=== PATIENT | female | born 1990 | race Caucasian/White ===

== ENCOUNTER 2019-08-13 15:21 | Inpatient (IN) | payer OTHER ==
[~2019-08-13] VITALS: Ht 160 cm; Wt 93.1 kg
--- NOTE | ~2019-08-13 | EKG ---
[place], [place] ELECTROCARDIOGRAM REPORT NAME: MITRA GARDINER UNIT #: [id number] ROOM: 426 DOCTOR: TRISHA DRAFT REPORT BIRTHDATE: [birth year] [facility] Test Date: 2019-08-13 Test Time: 18:35:18 Pat Name: MITRA GARDINER Department: Room: 42 1 Gender: F Coding Analyst: SS RESP : 1990 Requested By: AKHIL CAMPA Order Number: [id number] Reading MD: Stephan Reynoso Measurements Intervals [place] Rate: 85 P: 45 IL: 145 QRS: 40 QRSD: 90 T: 21 QT: 387 QTc: 461 Interpretive Statements Sinus rhythm Electronically Signed On 08-14-2019 7:45:36 PST by Stephan Reynoso CM:EKGRPT:ELECTROCARDIOGRAM REPORT [id number] AKHIL SMITHANY DRAFT REPORT AKHIL CAMPA
--- NOTE | ~2019-08-13 | EKG ---
[place], [place] ELECTROCARDIOGRAM REPORT NAME: MITRA GARDINER UNIT #: [id number] ROOM: 426 DOCTOR: TRISHA DRAFT REPORT BIRTHDATE: [birth year] [facility] Test Date: 2019-08-13 Test Time: 16:37:47 Pat Name: MITRA GARDINER Department: Room: 42 1 Gender: F Occupational Therapy Department Chair: SS RESP : 1990 Requested By: PHOENIX COOK Order Number: [id number] Reading MD: Stephan Reynoso Measurements Intervals [place] Rate: 83 P: 52 CT: 162 QRS: 51 QRSD: 84 T: 37 QT: 386 QTc: 454 Interpretive Statements Sinus rhythm Baseline wander in lead(s) V2 No previous ECG available for comparison Electronically Signed On 08-14-2019 7:42:42 PST by Stephan Reynoso CM:EKGRPT:ELECTROCARDIOGRAM REPORT [id number] PHOENIX COOK EPIPHANY DRAFT REPORT PHOENIX COOK
[2019-08-13 15:24] VITALS: BP 140/87
[2019-08-13 16:04] LABS: BILIRUBIN NEGATIVE (NEGATIVE); BLOOD NEGATIVE (NEGATIVE); CLARITY SL CLOUDY (CLEAR); COLOR YELLOW (YELLOW); GLUCOSE NEGATIVE (NEGATIVE); KETONE TRACE (NEGATIVE); LEUKO ESTERASE NEGATIVE (NEGATIVE); NITRITE NEGATIVE (NEGATIVE); PH 5.5 (5.0-9.0); SPECIFIC GRAVITY 1.025 (1.005-1.030); UROBILINOGEN 0.2 E.U./dl (0.2-1.0)
[2019-08-13 16:12] LABS: URINE AMPHETAMINES < 1000 (1000ng/ml); URINE BARBITURATES > 200 (200ng/ml); URINE BENZODIAZEPINES < 200 (200ng/ml); URINE CANNABINOIDS (THC) < 50 (50ng/ml); URINE COCAINE > 300 (300ng/ml); URINE METHADONE < 300 (300ng/ml); URINE OPIATES > 300 (300ng/ml)
[2019-08-13 16:16] LABS: URINE PHENCYCLIDINE < 25 (25ng/ml)
[2019-08-13] MEDS ORDERED: AMOXICILLIN500 M3 PO (16:41)
[2019-08-13 16:43] LABS: ALBUMIN 3.5 gm/dl (3.1-4.5); ALKALINE PHOSPHATASE 64 U/L (45-117); BUN 12 mg/dl (7-24); CHLORIDE 107 mmol/L (98-107); CREATININE 0.84 mg/dL (0.55-1.02); POTASSIUM 4.2 mmol/L (3.5-5.1); SGOT/AST 17 IU/L (3-35); SGPT/ALT 21 U/L (12-78); SODIUM 135 mmol/L (136-145)
[2019-08-13 16:51] LABS: THYROID STIM HORMONE (HS) 0.577 uIU/ml (0.358-4.75)
[2019-08-13 16:52] LABS: ETHYL ALCOHOL < 3.0 mg/dl (<3)
--- NOTE | 2019-08-13 16:52 | NUR ---
PATIENT MEETS [facility]. CINA=16, CIWA=27. PATIENT WANTS TO FOLLOW UP WITH RESIDENTIAL TREATENT THOROUGH [facility]. ADRIEN NGUYEN B.A. LEAD INSTRUCTOR/FLIGHT ATTENDANT
[2019-08-13 16:54] VITALS: BP 119/72
[2019-08-13 16:57] LABS: BASO % 0.3 % (0.0-1.0); EOS # 0.2 10*3/uL (0.0-0.4); EOS % 2.5 % (1.0-4.0); HEMATOCRIT 42.2 % (37.0-47.0); HEMOGLOBIN 13.6 g/dl (12.0-16.0); LYMPH # 2.3 10*3/uL (1.3-4.4); MEAN CELL VOLUME 79.2 fl (81.0-99.0); MEAN CORPUSCULAR HGB 25.5 pg (27.0-31.0); MEAN CORPUSCULAR HGB CONC 32.2 g/dl (33.0-37.0); MEAN PLATELET VOLUME 9.1 fl (9.6-12.3); MONO # 0.6 10*3/uL (0.1-1.0); MONO % 6.1 % (3.0-9.0); NEUT # 6.1 10*3/uL (2.3-7.9); NEUT % 65.7 % (47.0-73.0); PLATELET COUNT AUTOMATED 275 10*3/uL (130-400); RED BLOOD COUNT 5.33 10*6/uL (4.10-5.10); RED CELL DISTRI WIDTH 13.7 % (0-14.5); WHITE BLOOD COUNT 9.2 10*3/uL (4.8-10.8)
--- NOTE | 2019-08-13 17:08 | NUR ---
A 28, admitted to , under the services of ANITA Whipple DO with a diagnosis of OPIOID USE DISORDER. Chief complaint is SUBSTANCE ABUSE WITHDRAWAL. Patient arrived via wheel chair from ER. Monitor applied. Initial assessment completed. Vital signs taken and recorded. ANITA WHIPPLE DO notified of admission to the unit. Orders received. See assessment for past medical history, medications and allergies. Patient and/or family oriented to unit. [facility] visitation policy reviewed. Clothing/patient valuable form completed. ADRIEN ESTRADA
--- NOTE | 2019-08-13 18:26 | NUR ---
PT DIAPHORETIC AND C/O CHEST PAIN WITH HOT FLASHES AFTER TAKING AUGMENTIN. SHE STATES SHE'S NEVER TAKEN IT BEFORE AND SHE HAS TAKEN LIBRIUM AND SUBUTEX BEFORE. DR CAMPA NOTIFIED AND STATED SOMEONE WILL BE UP TO SEE HER.
[2019-08-13] MEDS ORDERED: PENICILLIN VK500 MG PO (18:44)
[2019-08-13 20:00] VITALS: BP 124/70
[2019-08-13 20:08] LABS: BUN 11 mg/dl (7-24); CHLORIDE 104 mmol/L (98-107); CREATININE 0.87 mg/dL (0.55-1.02); POTASSIUM 3.9 mmol/L (3.5-5.1); SODIUM 138 mmol/L (136-145)
[2019-08-13 20:24] LABS: TROPONIN I < 0.015 ng/ml (<0.045)
--- NOTE | 2019-08-13 20:49 | NUR ---
24 HR chart check completed.
--- NOTE | 2019-08-13 22:55 | NUR ---
Patient displaying withdrawal symptoms, including: irritability, anxiousness, restlessness and agitation. Scheduled/PRN medications provided, SEE EMAR. Will continue to monitor medication effectiveness.
[2019-08-14] VITALS: BP 107/63
--- NOTE | 2019-08-14 00:15 | NUR ---
PATIENT SLEEPING IN BED. AWAKENS EASILY TO VOICE. NO NEEDS AT THIS TIME. BED LOCKED IN LOWEST POSITION. CALL LIGHT WITHIN REACH.
--- NOTE | 2019-08-14 01:41 | NUR ---
24 HR chart check completed.
--- NOTE | 2019-08-14 01:50 | NUR ---
PATIENT HAD A SMALL EMESIS. RN OFFERED ZOFRAN BUT PATIENT DECLINED STATING IT WOULD NOT HELP AND SHE WANTED TO TRY TO GO BACK TO SLEEP.
--- NOTE | 2019-08-14 05:45 | NUR ---
PATIENT REFUSED TRIMOX THIS MORNING. RN OFFERED TO GIVE PATIENT SOMETHING FOR NAUSEA BUT PATIENT REFUSED.
--- NOTE | 2019-08-14 06:33 | NUR ---
MITRA GARDINER [id number] Please refer to the physician's history and physical for past medical history, comorbid conditions, and allergies. Diagnosis: OPIOID USE DISORDER Christos Score: 21,LOW OR NO RISK WOUND DESCRIPTIONS: Wound Number: 1 Location of the wound: left inner thigh Thickness: Full Size: 0.5cm x 0.8cm x 0.2cm Tunneling: unable to determine due to patient refusal Undermining: unable to deteremine due to patient refusal Sinus Tract: unable to determine due to patient refusal Presence of Exudate: Purulent Amount: Light Color: Yellow, red Odor: None Periwound Skin Appearance: erythema Wound edges: approximated Pain (associated with wound): none at time of assessment How does patient state this happened? pt stated this started about one month ago and it opened up last week and was seen in er and was put on antibiotics Surface the patient is resting on: Position Pro SKIN PREVENTION RECOMMENDATION: 1. Pressure redistribution support surface as appropriate 2. Elevate heels 3. Remove boots/TEDS every shift and reapply 4. Head of bed 30 degrees as tolerated 5. Assess nutrition and hydration 6. Manage moisture 7. Avoid the use of containment devices while in bed 8. Use absorptive products on surfaces limit layers of linens on bed 9. Turn and reposition every 1-2 hours in bed and every 1 hour in chair as tolerated 10. Weight shifts every 15 minutes while up in chair 11. Offloading with pillows or device to keep heels elevated off bed 12. Monitor skin at least every shift 13. Inspect under medical devices twice a day WOUND TREATMENT RECOMMENDATIONS: Imaging studies to left inner thigh Consult surgery if imaging studies suggest Full thickness guidelines: Cleanse left inner thigh with nss and apply sureprep around the wound therahoney to wound bed and cover with optifoam gentle.
--- NOTE | 2019-08-14 07:56 | NUR ---
Maryellen FERNANDEZ notified of wound care recommendations
--- NOTE | 2019-08-14 07:57 | NUR ---
Maryellen FERNANDEZ notified of wound care recommendations.
[2019-08-14 08:00] VITALS: BP 124/75
--- NOTE | 2019-08-14 11:25 | NUR ---
PT REFUSING WARM COMPRESSES FOR THIGH ABCESS
[2019-08-14 12:00] VITALS: BP 122/72
--- NOTE | 2019-08-14 12:15 | NUR ---
Nutritional Support Services Note: Pt has a abscess to left inner thigh. Hx of opiod abuse. Ht.5'3 Wt.205#. Appetite is normally good. Regular diet as ordered. Will receive a night snack daily. will follow if needed. Galina Hilton Rdn Ld
--- NOTE | 2019-08-14 15:01 | NUR ---
PATIENT IS GOING TO AWAKENINGS THROUGH [facility] IN [facility] FOR HER AFTERCARE PLAN. PATIENT AGREES AND UNDERSTANDS HER AFTERCARE PLAN. PATIENT REPORTS THAT SHE HAS TRANSPORTATION ARRANGED. ADRIEN NGUYEN B.A. RADIOGRAPHER
[2019-08-14 16:00] VITALS: BP 120/70
[2019-08-14 20:00] VITALS: BP 120/64
--- NOTE | 2019-08-14 21:42 | NUR ---
PATIENT REFUSING TO TAKE PO TRIMOX, STATES THAT SHE HAD A REACTION TO AN ANTIBIOTIC EARLIER AND SHE DOESNT WANT ANYMORE, RN EDUCATED PATIENT ON RISKS OF NOT TAKING MEDICATIONS, PATIENT REMAINS ADAMATE THAT SHE WILL NOT TAKE ANTIBIOTIC.
[2019-08-15] VITALS: BP 137/72
[2019-08-15 08:00] VITALS: BP 117/58
--- NOTE | 2019-08-15 09:06 | NUR ---
IN TO ROOM. PT ASLEEP. UPON AWAKENING PT IS ALERT AND ORIENTED. PT REFUSED ALL MEDS EXECPT SUBUTEX. NO STATED COMPLAINTS AND NO S/S OF DISTRESS. BED IN LOWEST LOCKED POSITION AND CALL LIGHT WITHIN REACH. WILL CONTINUE TO MONITOR.
--- NOTE | 2019-08-15 13:03 | NUR ---
PATIENT LEFT AMA.
== END 2019-08-15 13:03 | disposition left against medical advice (07) | DRG 770 ==
LOC: ED 15:21 → 4E 15:45 → EDHOLD 15:45 → 4E 16:05
PROVIDERS: Emergency Medicine; Student in an Organized Health Care Education/Training Program; ADMIT Internal Medicine
DX: F11.23 Opioid dependence with withdrawal (principal); F13.10 Sedative, hypnotic or anxiolytic abuse, uncomplicated; F14.90 Cocaine use, unspecified, uncomplicated; E66.01 Morbid (severe) obesity due to excess calories; L03.116 Cellulitis of left lower limb; L02.416 Cutaneous abscess of left lower limb; Z53.29 Procedure and treatment not carried out because of patient's decision for other reasons; Z87.891 Personal history of nicotine dependence; Z98.891 History of uterine scar from previous surgery; Z82.49 Family history of ischemic heart disease and other diseases of the circulatory system; Z68.36 Body mass index [BMI] 36.0-36.9, adult